=== PATIENT | male | born 1995 | race Caucasian/White ===

== ENCOUNTER 2018-02-22 07:27 | Emergency (ER) | payer OTHER ==
[~2018-02-22] VITALS: Ht 193 cm; Wt 77.1 kg
[2018-02-22] MEDS ORDERED: OXYMETAZOLINE 0.05% NASAL SPRAY 15ML BOTTLE. NS ONE (08:00)
--- NOTE | 2018-02-22 08:00 | PHYS DOC ---
Past History Past Medical History: No Pertinent History Past Surgical History: Other Alcohol Use: Occasionally Drug Use: None Adult General Chief Complaint Chief Complaint: NOSEBLEED HPI HPI 22-year-old male patient with history of recurrent epistaxis states he woke up at 5:30 this morning and had blood in his pillow and had packed his left nares and woke up at 6:30 again with continuing bleeding that stopped at arrival to ER. Patient denies other bleeding and states he has had history of nasal bleeding all of his life without abnormal blood finding and had previous cauterization but never had packing in emergency room. Review of Systems Review of Systems Constitutional: Denies fever or chills [] Eyes: Denies change in visual acuity, redness, or eye pain [] HENT: Denies nasal congestion or sore throat [] Respiratory: Denies cough or shortness of breath [] Cardiovascular: No additional information not addressed in HPI [] GI: Denies abdominal pain, nausea, vomiting, bloody stools or diarrhea [] : Denies dysuria or hematuria [] Musculoskeletal: Denies back pain or joint pain [] Integument: Denies rash or skin lesions [] Neurologic: Denies headache, focal weakness or sensory changes [] Endocrine: Denies polyuria or polydipsia [] All other systems were reviewed and found to be within normal limits, except as documented in this note. Current Medications Current Medications Current Medications Medications (Trade) Dose Ordered Sig/Latisha Start Time Stop Time Status Last Admin Dose Admin Oxymetazoline HCl (Afrin) 2 spray 1X ONCE 02/22/18 08:00 02/22/18 08:01 02/22/18 07:44 2 SPRAY Allergies Allergies Allergies Coded Allergies Type Severity Reaction Last Updated Verified No Known Drug Allergies 02/22/18 No Physical Exam Physical Exam Constitutional: Well nourished,mild distress, non-toxic appearance. [] HENT: Normocephalic, atraumatic, bilateral external ears normal, oropharynx moist, no oral exudates, dried blood in the left nares no active bleeding Eyes: PERRLA, EOMI, conjunctiva normal, no discharge. [] Neck: Normal range of motion, no tenderness, supple, no stridor. [] Cardiovascular:Heart rate regular rhythm, no murmur [] Lungs & Thorax: Bilateral breath sounds clear to auscultation [] Neurologic: Alert and oriented X 3, normal motor function, normal sensory function, no focal deficits noted. [] Psychologic: Affect normal, judgement normal, mood normal. [] Current Patient Data Vital Signs Vital Signs Date Time Temp Pulse Resp B/P (MAP) Pulse Ox O2 Delivery O2 Flow Rate FiO2 02/22/18 07:38 97.9 51 16 99 Room Air EKG EKG [] Radiology/Procedures Radiology/Procedures [] Course & Med Decision Making Course & Med Decision Making Evaluation of patient in ER showed 22-year-old male patient with recurrent epistaxis. Patient did not have active bleeding in ER. Afrin nasal spray and local pressure was applied and patient did not have bleeding while he was in ER and instructed to follow-up with his ENT doctor. Dragon Disclaimer Dragon Disclaimer This electronic medical record was generated, in whole or in part, using a voice recognition dictation system. Departure Departure: Impression: Primary Impression: Epistaxis, recurrent Disposition: 01 HOME, SELF-CARE (At 0800) Condition: IMPROVED Referrals: PCP,NO (PCP) Patient Instructions: Nose Drops, Saline, [id number], Nosebleed Additional Instructions: Follow-up with ENT physician in 2-3 days Return to ER if not getting better GILMAR SALDANA MD Feb 22, 2018 08:00
[2018-02-22 08:15] VITALS: BP 136/77
== END 2018-02-22 08:16 | disposition home or self-care (01) ==
LOC: ER 07:27
DX: R04.0 Epistaxis (principal)
CPT/HCPCS: 99282